=== PATIENT | female | born 1985 | race Caucasian/White ===

== ENCOUNTER → 2016-07-08 | Outpatient (CLI) | payer OTHER ==
--- NOTE | 2016-07-08 10:42 | US ---
EXAMINATION TYPE: US extremity nonvascular ltd LT DATE OF EXAM: 07/08/2016 10:02 AM COMPARISON: NONE CLINICAL HISTORY: R22.42 L Leg swelling/mass/lump. On the upper medial left thigh, there is a large s oft tissue palpable mass that has been there over 10 yrs, slowly getting larger, not tender, never be en imaged before; pt has been scheduled with surgeon TECHNOLOGIST IMPRESSION: 3.6 x 2.5 x 3.6cm soft tissue mass with internal vascular IMPRESSION: SOFT TISSUE TUMOR IN THE RIGHT THIGH ON THE LEFT. BIOPSY IS SUGGESTED.
== END | disposition home or self-care (01) ==
LOC: RADUSWWP 09:46
PROVIDERS: ATTEND Nurse Practitioner Family
DX: R22.42 Localized swelling, mass and lump, left lower limb (principal)

== ENCOUNTER 2016-08-21 09:10 | Day surgery (SDC) | payer OTHER ==
--- NOTE | 2016-08-09 13:51 | HP ---
DATE OF ADMISSION: 08/21/2016 CHIEF COMPLAINT: Left thigh mass. HISTORY OF PRESENT ILLNESS: Patient 31-year-old female who has had slowly enlarging mass in the left thigh since she was in high school. This has been increasing in size. Denies any significant pain except when it rubs up against her other thigh. She does state is more firm now than it had been in the past. No drainage. No fevers or chills. Never any redness. The patient had an ultrasound showing a 3.6 cm soft tissue mass with vascularity in June. PAST MEDICAL HISTORY: Anxiety. PAST SURGICAL HISTORY: Cholecystectomy. MEDICATIONS: 1. Mirena. 2. Xanax. 3. Valtrex. ALLERGIES: None. PHYSICAL EXAM: HEENT is normocephalic. Sclerae anicteric. CHEST: No deformities. ABDOMEN: Soft, nontender, nondistended. Extremities reveal a large mass in the upper anterior medial thigh beneath the inguinal ligament, this measures approximately 6 x 6 cm in size, it is mildly tender, this seems to be fully mobile and not adherent to the underlying structures. This is firm and somewhat rubbery, no adenopathy noted. 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 PLAN: Will proceed with operative excision on 08/21. The risks of bleeding, infection, postoperative pain, scarring, numbness and findings of malignancy that could require additional surgical procedures. The patient understands and wishes to proceed.
[2016-08-19 08:31] VITALS: BMI 39.9
[~2016-08-21 09:10] MED LIST: DEXAMETHASONE SOD PHOSPHATE 10 MG/ML 1 ML VIAL IV ONE; HEPARIN SODIUM,PORCINE 5,000 UNIT/ML 1 ML VIAL SQ ONE; HYDROmorphone 1 MG/ML 1 ML SYRINGE IVP PRN; LACTATED RINGERS 1,000 ML IV SCH; MIDAZOLAM 2 MG/2 ML VIAL IV PRN; ONDANSETRON 4 MG/2 ML VIAL IVP ONE; Pre Op ABX Message 1 EACH MISC MISCELLANE ONE; SCOPOLAMINE 1.5MG/72HR PATCH TRANSDERM ONE
[2016-08-21] MEDS ORDERED: LIDOCAINE 1% 20 ML VIAL (10MG/ML) FOR IV START INTRADERMA ONE (10:39)
[2016-08-21 10:47] VITALS: RESP 16
[2016-08-21] MEDS ORDERED: LIDOCAINE 1% INJ 10MG/ML (20 ML MDV) ONE (11:39)
[2016-08-21] MEDS ORDERED: SUCCINYLCHOLINE CHLORIDE 100 MG/5 ML SYR IV ONE (11:39)
[2016-08-21] MEDS ORDERED: fentaNYL (PF) 50 MCG/ML 2 ML AMP ONE (11:39)
[2016-08-21] MEDS ORDERED: ceFAZolin 1,000 MG VIAL ONE (11:39)
[2016-08-21] MEDS ORDERED: MIDAZOLAM 2 MG/2 ML VIAL ONE (11:39)
[2016-08-21] MEDS ORDERED: PROPOFOL 10 MG/ML 20 ML VIAL IV ONE (11:39)
[2016-08-21] MEDS ORDERED: HYDROmorphone (PF) 1 MG/ML ONE (11:39)
[2016-08-21] MEDS ORDERED: ceFAZolin 2 GM in SODIUM CHLORIDE 0.9% 100 ML IVPB STA (11:41)
[2016-08-21] MEDS ORDERED: BUPIVACAIN-EPI 0.25%-1:200,000 30 ML VIAL SQ ONE (11:57)
[2016-08-21] MEDS ORDERED: NALOXONE 0.4 MG/ML 1 ML VIAL IV PRN (12:26)
[2016-08-21] MEDS ORDERED: HYDROcodone/APAP 5-325MG 1 EACH TAB PO PRN (12:26)
--- NOTE | 2016-08-21 12:29 | P.PCN ---
Date of Procedure: 08/21/16 Procedure(s) Performed: PREOPERATIVE DIAGNOSIS: Left thigh mass POSTOPERATIVE DIAGNOSIS: Same PROCEDURE: Excision SURGEON: Hector EBL: Minimal ANESTHESIA: General COMPLICATIONS: None OPERATIVE PROCEDURE: Patient is place never table in the supine position. The left thigh was frog legged. The proximal left thigh was prepped and draped in usual sterile fashion. An elliptical incision was made overlying the palpable mass excising a portion of skin to assist with our cosmetic closure. Dissection through the superficial subcutaneous fat took place using electrocautery. The patient's mass was quite large measuring over 8 cm in diameter. There was a central portion of this lipomatous mass that was quite firm. This is able to be removed easily in one portion with primarily blunt dissection. The saphenous tissues were inspected. No bleeding was seen. The saphenous tissues were closed using 3-0 Vicryl sutures and the skin using a running 4-0 Monocryl stitch. Dermabond was used on the skin incision itself. DISPOSITION: Stable to recovery room
[2016-08-21 12:32] VITALS: TEMP 98.6
[2016-08-21 14:26] VITALS: BP 111/71; PULSE 80
== END 2016-08-21 14:43 | disposition home or self-care (01) ==
LOC: OR 09:10
PROVIDERS: ATTEND Surgery
DX: D17.24 Benign lipomatous neoplasm of skin and subcutaneous tissue of left leg (principal); M79.89 Other specified soft tissue disorders; F41.9 Anxiety disorder, unspecified; E66.9 Obesity, unspecified; Z79.899 Other long term (current) drug therapy
CPT/HCPCS: 81025; 88304; 27337; J2250; J1644; J1100; J0690 ×2; J2405; J2001; J3010; J1170; J0330; J2704

== ENCOUNTER 2020-11-03 07:07 | Emergency (ER) | payer OTHER ==
[2020-11-03 07:15] VITALS: RESP 18; TEMP 97.7
--- NOTE | 2020-11-03 07:29 | ED ---
ENT HPI - General Chief complaint: ENT Stated complaint: ENT Time Seen by Provider: 11/03/20 07:16 Source: patient, RN notes reviewed Mode of arrival: ambulatory Limitations: no limitations - History of Present Illness Initial comments: This a 35-year-old female presents emergency Department chief complaint of sore throat, difficulty swallowing. Patient states this started yesterday though she thought it was just from a new air-conditioner that they put in her room. Patient states that did seem to get slightly better throughout the day but states that she woke up this morning and seemed worse. She states it's not excruciating pain states is painful to swallow states it just feels very swollen. Patient denies any nasal congestion, fever, chills, abdominal pain, cough or chest congestion. Denies any sick contacts no history of mono. No prior adenoidectomy and tonsillectomy. - Related Data Home Medications Medication Instructions Recorded Confirmed Citalopram Hydrobromide 10 mg PO DAILY 11/03/20 11/03/20 [Citalopram HBr] Previous Rx's Medication Instructions Recorded Amoxicillin/Potassium Clav 1 tab PO Q12HR #20 tab 11/03/20 [Augmentin 875-125 Tablet] predniSONE 50 mg PO DAILY #3 tab 11/03/20 Allergies Allergy/AdvReac Type Severity Reaction Status Date / Time No Known Allergies Allergy Verified 11/03/20 07:55 Review of Systems ROS Statement: Those systems with pertinent positive or pertinent negative responses have been documented in the HPI. ROS Other: All systems not noted in ROS Statement are negative. Past Medical History Additional Past Medical History / Comment(s): left thigh mass History of Any Multi-Drug Resistant Organisms: None Reported Past Surgical History: Cholecystectomy Past Anesthesia/Blood Transfusion Reactions: No Reported Reaction Past Psychological History: Anxiety Smoking Status: Never smoker Past Alcohol Use History: Occasional Past Drug Use History: None Reported - Past Family History Mother Family Medical History: No Reported History General Exam Limitations: no limitations General appearance: alert, in no apparent distress Head exam: Present: atraumatic, normocephalic, normal inspection Eye exam: Present: normal appearance, PERRL, EOMI. Absent: scleral icterus, conjunctival injection, periorbital swelling ENT exam: Present: mucous membranes moist, TM's normal bilaterally. Absent: normal exam, normal oropharynx (Moderate swelling, erythema, swallowing secretions well no exudates) Neck exam: Present: normal inspection, full ROM, lymphadenopathy. Absent: tende rness, meningismus Respiratory exam: Present: normal lung sounds bilaterally. Absent: respiratory distress, wheezes, rales, rhonchi, stridor Cardiovascular Exam: Present: regular rate, normal rhythm, normal heart sounds. Absent: systolic murmur, diastolic murmur, rubs, gallop, clicks Neurological exam: Present: alert Skin exam: Present: warm, dry, intact, normal color. Absent: rash Course Vital Signs 11/03/20 07:12 Temperature 97.7 F Pulse Rate 90 Respiratory 18 Rate Blood Pressure 139/83 O2 Sat by Pulse 97 Oximetry Medical Decision Making - Medical Decision Making [place], strep is negative. Patient does have evidence of tonsillitis Patient was given steroids, antibiotics. Patient discharged on antibiotics in 2 days with steroids. Patient will return for any worsening symptoms. - Lab Data Lab Results 11/03/20 11/03/20 Range/Units 07:27 07:27 Heterophile Antibody Negative (Negative) Group A Strep Rapid Negative (Negative) Disposition Clinical Impression: Acute tonsillitis Disposition: HOME SELF-CARE Condition: Stable Instructions (If sedation given, give patient instructions): Tonsillitis (ED) Additional Instructions: Please return to the Emergency Department if symptoms worsen or any other concerns. Prescriptions: Amoxicillin/Potassium Clav [Augmentin 875-125 Tablet] 1 tab PO Q12HR #20 tab predniSONE 50 mg PO DAILY #3 tab Is patient prescribed a controlled substance at d/c from ED?: No Referrals: Vasu Eckert MD [Primary Care Provider] - 1-2 days Time of Disposition: 08:36
[2020-11-03] MEDS: DEXAMETHASONE SOD PHOSPHATE 10 MG/ML 1 ML VIAL IV STA (07:37)
--- NOTE | 2020-11-03 08:25 | XR ---
EXAMINATION TYPE: XR soft tissue neck DATE OF EXAM: 11/03/2020 COMPARISON: None HISTORY: 35-year-old female throughout swelling, feels like something is stuck. TECHNIQUE: AP and lateral views FINDINGS: Mild adenoid soft tissue hypertrophy. The vallecular space is effaced limited visualization of the ep iglottis. Epiglottis probably within normal limits. Scattered calcifications of the thyroid cartilage . No retained radiopaque foreign body is clearly identified. No abnormal narrowing of the subglottic airway. No prevertebral soft tissue swelling. A left-sided nose ring is present. Dental amalgam. IMPRESSION: No retained radiopaque foreign body clearly identified radiographically along the soft tissues of the neck. Some thyroid cartilage calcifications are noted. The vallecular space is effaced limiting adeq uate visualization of the epiglottis. This may be secondary to lingual tonsillar hypertrophy
[2020-11-03] MEDS: cefTRIAXone IN SWFI 1,000 MG/10 ML SYRINGE IVP STA (09:13)
[2020-11-03 09:21] VITALS: BP 129/82; PULSE 84
== END 2020-11-03 09:20 | disposition home or self-care (01) ==
LOC: EC 07:07
DX: J03.90 Acute tonsillitis, unspecified (principal); F41.9 Anxiety disorder, unspecified; Z79.52 Long term (current) use of systemic steroids; Z79.899 Other long term (current) drug therapy
CPT/HCPCS: 36415; 86308; 87081; 87430; 70360; 99283; 96374; 96375; J1100; J0696

== ENCOUNTER → 2021-03-27 | Outpatient (CLI) | payer OTHER | END | disposition home or self-care (01) | LOC: LABWHC1 07:16 | PROVIDERS: ATTEND Obstetrics & Gynecology | DX: O20.0 Threatened abortion (principal); Z3A.00 Weeks of gestation of pregnancy not specified | CPT/HCPCS: 86850; 86900; 86901 ==

== ENCOUNTER 2021-10-23 06:00 | Inpatient (IN) | payer OTHER ==
--- NOTE | 2021-10-22 12:29 | P.HPOB ---
History of Present Illness H&P Date: 10/22/21 Chief Complaint: Induction due to gestational diabetes This patient is a pleasant 36 yr old female EDC 10/25/2021 estimated gestational age 39 5/7 weeks who presents for delivery secondary to insulin dependent gestational diabetes. Patient's care initially was with Dr. Cardona however transferred to [place] after he left the practice. care is complicated by insulin dependent GDM which has been managed by [facility]. She also is advanced for maternal age. She declined genetic testing, but did have a normal Level III ultrasound. Most recent ultrasound shows EFW 8#6oz which is the size of her last delivery. She did have mild blood pressure in the office last week and was evaluated by Dr. Clifford. Review of Systems Genitourinary: Reports Menstruation: Reports amenorrhea Past Medical History Additional Past Medical History / Comment(s): left thigh mass; 2 , second with GDM; obesity History of Any Multi-Drug Resistant Organisms: None Reported Past Surgical History: Cholecystectomy Past Anesthesia/Blood Transfusion Reactions: No Reported Reaction Past Psychological History: Anxiety Smoking Status: Never smoker Past Alcohol Use History: Occasional Past Drug Use History: None Reported - Past Family History Mother Family Medical History: No Reported History Medications and Allergies Allergies Allergy/AdvReac Type Severity Reaction Status Date / Time No Known Allergies Allergy Verified 11/03/20 07:55 Exam - OBG Physical Exam Abdomen: bowel sounds normal, no diffuse tenderness, no bruit present, no guarding noted, no hepatomegaly, no splenomegaly, no mass Vulva: both: normal Vagina: normal moisture, no discharge Uterus: enlarged Results labs: O negative (received Rhogam), Rubella Non-Immune, RPR-HepB negative, Glucola 189, Ultrasound 10/17 EFW 8#6oz (>90%). GBS negative Assessment and Plan Assessment: This is a pleasant 36 yr female estimated gestational age 39 5/7 weeks with insulin dependent gestational DM, elderly for induction of labor. She also has has some mild BP elevations in the office last week. Plan is induction of labor, close observation of glucoses, and will check pre-eclampsia labs. Anticipate vaginal delivery. (1) 39 weeks gestation of Status: Acute Code(s): Z3A.39 - 39 WEEKS GESTATION OF SNOMED Code(s): 05685451 (2) Gestational diabetes Status: Acute Code(s): O24.419 - GESTATIONAL DIABETES MELLITUS IN , UNSP CONTROL SNOMED Code(s): 88443581 (3) Elderly multigravida Status: Acute Code(s): O09.529 - SUPERVISION OF ELDERLY MULTIGRAVIDA, UNSPECIFIED TRIMESTER SNOMED Code(s): 995770834 (4) Rh negative state in antepartum period Status: Acute Code(s): O26.899 - OTH RELATED CONDITIONS, UNSPECIFIED TRIMESTER; Z67.91 - UNSPECIFIED BLOOD TYPE, RH NEGATIVE SNOMED Code(s): 083134299 (5) Rubella non-immune status, antepartum Status: Acute Code(s): O09.899 - SUPERVISION OF OTHER HIGH RISK PREGNANCIES, UNSP TRIMESTER; Z28.39 - OTHER UNDERIMMUNIZATION STATUS SNOMED Code(s): 087052218 (6) Obesity Status: Acute Code(s): E66.9 - OBESITY, UNSPECIFIED SNOMED Code(s): 178274145
[2021-10-23] MEDS ORDERED: CARBOPROST TROMETHAMINE 250 MCG/ML 1 ML AMP IM PRN (06:29)
[2021-10-23] MEDS ORDERED: OXYTOCIN 30 UNITS/500 ML NS 30 UNIT in SALINE 1 500ML.BAG IV SCH ×2 (06:29→14:33)
[2021-10-23] MEDS ORDERED: TERBUTALINE 1 MG/ML VIAL SQ PRN (06:29)
[2021-10-23] MEDS ORDERED: LIDOCAINE 0.5% (PF) 5 MG/ML (50 ML SDV) SQ PRN (06:29)
[2021-10-23] MEDS ORDERED: METHYLERGONOVINE 0.2 MG/ML 1 ML AMP IM PRN (06:29)
[2021-10-23] MEDS ORDERED: OXYTOCIN 10 UNIT/ML 1 ML VIAL IM PRN (06:29)
[2021-10-23 06:40] LABS: Glucose,Whole Blood 121 mg/dL (75-99)
[2021-10-23 06:45] LABS: Anisocytosis Slight; Basophils % (A) 0 %; Eosinophils # (A) 0.1 k/uL (0-0.7); Eosinophils % (A) 1 %; HCT 36.1 % (34.0-46.0); HGB 11.6 gm/dL (11.4-16.0); Hypochromasia Slight; Lymphocytes % (A) 21 %; MCHC 32.2 g/dL (31.0-37.0); MCV 80.7 fL (80.0-100.0); Mean Platelet Volume 8.5; Monocytes # (A) 0.4 k/uL (0-1.0); Monocytes % (A) 4 %; Neutrophils # (A) 6.9 k/uL (1.3-7.7); Neutrophils % (A) 72 %; Platelet Count 310 k/uL (150-450); Poikilocytosis Slight; RBC 4.48 m/uL (3.80-5.40); RDW 16.1 % (11.5-15.5); WBC 9.6 k/uL (3.8-10.6)
[2021-10-23 06:54] LABS: ALT 15 U/L (4-34); AST 21 U/L (14-36); African American GFR (CKD) >90 (>60 ml/min/1.73 sqM); Blood Urea Nitrogen 11 mg/dL (7-17); LDH 500 U/L (313-618); Non-African American GFR(CKD) >90 (>60 ml/min/1.73 sqM); Uric Acid 5.2 mg/dL (3.7-7.4)
[2021-10-23] MEDS: LACTATED RINGERS 1,000 ML IV SCH ×3 (06:54→11:45)
[2021-10-23 07:59] LABS: Glucose,Whole Blood 92 mg/dL (75-99)
[2021-10-23 08:55] LABS: Glucose,Whole Blood 81 mg/dL (75-99)
[2021-10-23 09:59] LABS: Glucose,Whole Blood 85 mg/dL (75-99)
[2021-10-23] MEDS ORDERED: fentaNYL (PF) 50 MCG/ML 5 ML AMP ONE (10:10)
[2021-10-23] MEDS ORDERED: SODIUM CHLORIDE 0.9% 100 ML BAG ONE (10:10)
[2021-10-23] MEDS ORDERED: ROPIVACAINE 5MG/ML 20ML VIAL ONE (10:10)
[2021-10-23 10:53] LABS: Glucose,Whole Blood 92 mg/dL (75-99)
[2021-10-23 11:54] LABS: Glucose,Whole Blood 88 mg/dL (75-99)
[2021-10-23 12:53] LABS: Glucose,Whole Blood 80 mg/dL (75-99)
[2021-10-23] MEDS ORDERED: diphenhydrAMINE 50 MG/ML 1 ML VIAL IVP PRN (14:33)
[2021-10-23] MEDS ORDERED: Rhogam IMMUNE GLOBULIN 1,500 UNIT/1 ML IM ONE (14:33)
[2021-10-23] MEDS ORDERED: SIMETHICONE 80 MG CHEWABLE PO PRN (14:33)
[2021-10-23] MEDS ORDERED: MEASLES-MUMPS-RUBELLA VACC/PF 12,500 UNIT/0.5 ML VIAL SQ ONE (14:33)
[2021-10-23] MEDS ORDERED: LANOLIN CREAM 5 GM TUBE TOPICAL PRN (14:33)
[2021-10-23] MEDS ORDERED: diphenhydrAMINE 25 MG CAP PO PRN (14:33)
[2021-10-23] MEDS ORDERED: BENZOCAINE/MENTHOL SPRAY 1 GM/SPRAY AEROSOL TOPICAL PRN (14:33)
[2021-10-23] MEDS ORDERED: ZOLPIDEM 5 MG TAB PO PRN (14:33)
[2021-10-23] MEDS ORDERED: HYDROCORTISONE 2.5% RECTAL CREAM 30 GM TUBE RECTAL PRN (14:33)
[2021-10-23] MEDS ORDERED: bisacodyL 10 MG SUPP RECTAL PRN (14:33)
[2021-10-23] MEDS ORDERED: ACETAMINOPHEN TAB 325 MG TAB PO PRN (14:33)
[2021-10-23] MEDS: IBUPROFEN 600 MG TAB PO PRN (15:08)
[2021-10-23 15:20] LABS: Glucose,Whole Blood 63 mg/dL (75-99)
--- NOTE | 2021-10-23 18:49 | P.PROBDLV ---
Vaginal Delivery Note - . Vaginal Delivery Note: Normal vaginal delivery viable male infant Apgars 9 and 9 delivery time is 1354 hrs. Please see dictated H&P for intimate details of this patient's admission. Brief summary this is a pleasant 36-year-old 4 para 2 female 39-5/7 weeks gestation who is admitted to labor and delivery for induction of labor secondary to insulin-dependent gestational diabetes. Patient also did have some elevated blood pressures and admission and elevated blood pressure however this didn't come down and labs were normal. Patient is artificial rupture membranes at 2 cm dilated for clear fluid. Labor is induced with Pitocin. She progresses and does get an epidural for pain control. Patient gets to complete pushes approximately 1 or 2 times pushes the head to the perineum. Posterior perineum is supported we have controlled delivery of the 's head over the intact perineum. 's head is straight occiput anterior presentation. Mouth and nares are bulb suctioned. There is no evidence of a nuchal cord. With gentle downward traction we then have deliver the anterior and posterior shoulder and rest this infant's body. This is a vigorous viable male infant Apgars are 9 and 9 delivery time is 1354 hrs. Infant has spontaneous respiration and good cry and grossly appears normal. is late on the mother's abdomen. Due to history of jaundice with one of her children the umbilical cord is doubly clamped and cut immediately. Of note there is H do not the umbilical cord. After delivery of the the placenta spontaneously delivered intact. Inspection of the perineum shows a first-degree small laceration is repaired with a [id number] 3-0 Vicryl suture good reapproximation is noted. All counts are correct 3. There are no complications. and mother are stable delivery room.
[2021-10-23] MEDS: SENNOSIDES-DOCUSATE SODIUM 1 EACH TAB PO SCH (19:59)
[2021-10-24] MEDS: IBUPROFEN 600 MG TAB PO PRN ×2 (00:33→08:49)
[2021-10-24 00:52] VITALS: TEMP 98
--- NOTE | 2021-10-24 06:22 | P.PNOBGVD ---
Subjective - Subjective Patient reports: Reports appetite normal, Reports voiding normally, Reports pain well controlled, Reports ambulating normally [place]: doing well Objective - Latest Vital Signs Latest vital signs: Vital Signs Temp Pulse Resp BP Pulse Ox 10/24/21 00:00 98.0 F 96 16 141/88 97 10/23/21 20:00 98.3 F 113 H 17 141/80 97 10/23/21 16:15 97.5 F L 92 16 136/73 10/23/21 15:45 93 16 132/66 10/23/21 15:15 94 16 131/73 10/23/21 15:00 97 16 132/77 10/23/21 14:45 102 H 16 131/62 10/23/21 14:30 100 16 128/59 10/23/21 14:15 97.9 F 101 H 16 131/69 10/23/21 06:27 97.0 F L 95 16 157/95 Intake and Output 10/23/21 10/23/21 10/24/21 14:59 22:59 06:59 Intake Total 203.300 Output Total 300 Balance -96.700 Intake: Intake, IV Titration 203.300 Amount Oxytocin 30 Units/500 ml 203.300 Ns 30 unit In Saline 1 500ml.bag @ Per Protocol IV .Q0M [facility] Rx#:[id number] Output: Urine 300 Straight 300 Other: # Voids 1 1 1 - Exam Lungs: bilateral: normal Chest: Normal S1, Normal S2 Extremities: Present: normal Abdomen: Present: normal appearance, soft Uterus: Present: normal, firm - Labs Labs: Abnormal Lab Results - Last 24 Hours (Table) 10/23/21 10/23/21 10/23/21 Range/Units 06:20 06:34 15:15 RDW 16.1 H (11.5-15.5) % POC Glucose (mg/dL) 121 H 63 L (75-99) mg/dL Assessment and Plan Assessment: day #1. Patient is resting without complaints wishes to go home. Vital signs are stable and she is afebrile. Uterus is firm nontender she is having normal lochia. My impression this is a normal course. Plan is to continue routine care discharge home later today (1) 39 weeks gestation of Current Visit: No Status: Acute Code(s): Z3A.39 - 39 WEEKS GESTATION OF SNOMED Code(s): 14651717 (2) Gestational diabetes Current Visit: No Status: Acute Code(s): O24.419 - GESTATIONAL DIABETES MELLITUS IN , UNSP CONTROL SNOMED Code(s): 50083482 (3) Elderly multigravida Current Visit: No Status: Acute Code(s): O09.529 - SUPERVISION OF ELDERLY MULTIGRAVIDA, UNSPECIFIED TRIMESTER SNOMED Code(s): 692748928 (4) Rh negative state in antepartum period Current Visit: No Status: Acute Code(s): O26.899 - OTH RELATED CONDITIONS, UNSPECIFIED TRIMESTER; Z67.91 - UNSPECIFIED BLOOD TYPE, RH NEGATIVE SNOMED Code(s): 751978044 (5) Rubella non-immune status, antepartum Current Visit: No Status: Acute Code(s): O09.899 - SUPERVISION OF OTHER HIGH RISK PREGNANCIES, UNSP TRIMESTER; Z28.39 - OTHER UNDERIMMUNIZATION STATUS SNOMED Code(s): 739566815 (6) Obesity Current Visit: No Status: Acute Code(s): E66.9 - OBESITY, UNSPECIFIED SNOMED Code(s): 827116857
--- NOTE | 2021-10-24 06:27 | P.DS ---
Providers Date of admission: 10/23/21 06:07 Expected date of discharge: 10/24/21 Attending physician: Mac Aguilar Primary care physician: Vasu Eckert - Discharge Diagnosis(es) (1) 39 weeks gestation of Current Visit: No Status: Acute (2) Gestational diabetes Current Visit: No Status: Acute (3) Elderly multigravida Current Visit: No Status: Acute (4) Rh negative state in antepartum period Current Visit: No Status: Acute (5) Rubella non-immune status, antepartum Current Visit: No Status: Acute (6) Obesity Current Visit: No Status: Acute Hospital Course: Please see dictated H&P for intimate details of this patient's admission. Brief summary is a pleasant 36-year-old 4 para 2 female 39-5/7 weeks who is admitted to labor and delivery for induction of labor secondary to insulin-depen dent gestational diabetes at term. On admission's patient's blood pressure was elevated initially however this didn't come down to normal showed no further blood pressure elevations. Preeclampsia labs were negative. Patient had induction of labor quickly goes on have a vaginal delivery viable male infant. Please see dictated delivery note. day #1 patient is without complaints wishes to go home. Vital signs are stable she is afebrile. Uterus is firm nontender she's having normal lochia. Patient's felt be stable for discharge home follow up with me in 6 weeks. Procedures: Induction of labor normal vaginal delivery Patient Condition at Discharge: Good Plan - Discharge Summary New Discharge Prescriptions: New Ibuprofen [Motrin] 600 mg PO Q6HR PRN #30 tab PRN Reason: Mild Pain (Scale 1 To 3) Discharge Medication List Ibuprofen [Motrin] 600 mg PO Q6HR PRN #30 tab 10/24/21 [Rx] Follow up Appointment(s)/Referral(s): Mac Aguilar MD [STAFF PHYSICIAN] - 12/04/21 11:15 am Patient Instructions/Handouts: Vaginal Delivery (DC) Activity/Diet/Wound Care/Special Instructions: No intercourse or anything per vagina or 6 weeks. Please call if any fever, chills, excessive vaginal bleeding, and/or abdominal pain. Discharge Disposition: HOME SELF-CARE
[2021-10-24 08:23] LABS: Anisocytosis Slight; Basophils % (A) 0 %; Eosinophils # (A) 0.2 k/uL (0-0.7); Eosinophils % (A) 2 %; HGB 10.1 gm/dL (11.4-16.0); Hypochromasia Moderate; Lymphocytes # (A) 1.9 k/uL (1.0-4.8); Lymphocytes % (A) 19 %; MCH 26.5 pg (25.0-35.0); MCHC 32.6 g/dL (31.0-37.0); MCV 81.4 fL (80.0-100.0); Mean Platelet Volume 8.8; Monocytes # (A) 0.4 k/uL (0-1.0); Monocytes % (A) 4 %; Neutrophils # (A) 7.7 k/uL (1.3-7.7); Neutrophils % (A) 74 %; Platelet Count 271 k/uL (150-450); Poikilocytosis Slight; RBC 3.81 m/uL (3.80-5.40); RDW 16.2 % (11.5-15.5); WBC 10.4 k/uL (3.8-10.6)
[2021-10-24] MEDS: SENNOSIDES-DOCUSATE SODIUM 1 EACH TAB PO SCH (08:49)
[2021-10-24 10:09] VITALS: RESP 18
[2021-10-24 13:28] VITALS: BP 129/82; PULSE 91
== END 2021-10-24 14:30 | disposition home or self-care (01) | DRG 807 ==
LOC: 4FBP 06:07
PROVIDERS: ADMIT Obstetrics & Gynecology; ATTEND Obstetrics & Gynecology
PROC: 10E0XZZ Delivery of Products of Conception, External Approach (ICD-10-PCS; principal; 2021-10-23)
PROC: 3E0234Z Introduction of Serum, Toxoid and Vaccine into Muscle, Percutaneous Approach (ICD-10-PCS; 2021-10-23)
PROC: 10907ZC Drainage of Amniotic Fluid, Therapeutic from Products of Conception, Via Natural or Artificial Opening (ICD-10-PCS; 2021-10-23)
PROC: 3E033VJ Introduction of Other Hormone into Peripheral Vein, Percutaneous Approach (ICD-10-PCS; 2021-10-23)
PROC: 4A0HXCZ Measurement of Products of Conception, Cardiac Rate, External Approach (ICD-10-PCS; 2021-10-23)
DX: O24.424 Gestational diabetes mellitus in childbirth, insulin controlled (principal); Z37.0 Single live birth; F41.9 Anxiety disorder, unspecified; O70.0 First degree perineal laceration during delivery; O26.893 Other specified pregnancy related conditions, third trimester; Z67.91 Unspecified blood type, Rh negative; O99.214 Obesity complicating childbirth; E66.9 Obesity, unspecified; O99.344 Other mental disorders complicating childbirth; Z3A.39 39 weeks gestation of pregnancy
CPT/HCPCS: 82565; 83036; 83615; 84450; 84460; 84520; 84550; 85025; 85461; 86850; 86900; 86901; 90707

== ENCOUNTER 2023-10-10 10:38 | Day surgery (SDC) | payer OTHER ==
[2023-10-03 14:24] VITALS: BMI 43.9
[2023-10-10] MEDS: LACTATED RINGERS 1,000 ML IV SCH (11:35)
[2023-10-10] MEDS ORDERED: ONDANSETRON 4 MG/2 ML VIAL ONE (11:49)
[2023-10-10] MEDS: ONDANSETRON 4 MG/2 ML VIAL IVP ONE (11:52)
[2023-10-10 12:25] VITALS: PULSE 95; RESP 16; TEMP 96.9
[2023-10-10] MEDS ORDERED: PROPOFOL 10 MG/ML 20 ML VIAL IV ONE (12:30)
--- NOTE | 2023-10-10 12:50 | P.PCN ---
Date of Procedure: 10/10/23 Procedure(s) Performed: BRIEF HISTORY: Patient is a 38-year-old pleasant white female scheduled for an elective colonoscopy as a part of change in bowel habits or as 6 months duration. She had diarrhea for few weeks but eventually resolved but lately has been having irregular bowel movements. She does have family history of colon cancer diagnosed with grandmother in her 60s. PROCEDURE PERFORMED: Colonoscopy. PREOPERATIVE DIAGNOSIS: Change in bowel habits/family history of colon cancer. IV sedation per Anesthesia. PROCEDURE: After informed consent was obtained, the patient, was brought into the endoscopy unit. IV sedation was administered by Anesthesia under continuous monitoring. Digital rectal examination was normal. Initially the Olympus CF-160 flexible video colonoscope was then inserted in the rectum, gradually advanced into the colon without any difficulty. Despite multiple attempts I was unable to advance the scope into the base of the cecum. Careful examination was performed as the scope was gradually being withdrawn. Prep was excellent. Mucosa of the ascending colon, transverse colon, descending colon, sigmoid colon, and rectum appeared normal. Retroflexion was performed in the rectum and no lesions were seen. The patient tolerated the procedure well. IMPRESSION: Normal-appearing colon from rectum to right colon with no evidence of colorectal neoplasia. RECOMMENDATIONS: Findings of this examination were discussed with the patient as well as her family. She was advised to have repeat screening colonoscopy in 10 years..
[2023-10-10 13:24] VITALS: BP 165/80
== END 2023-10-10 13:23 | disposition home or self-care (01) ==
LOC: ORWHC2ENDO 10:38
PROVIDERS: ATTEND Internal Medicine Gastroenterology
DX: R19.4 Change in bowel habit (principal); F32.A Depression, unspecified; F12.90 Cannabis use, unspecified, uncomplicated; Z80.0 Family history of malignant neoplasm of digestive organs; Z79.899 Other long term (current) drug therapy; Z90.49 Acquired absence of other specified parts of digestive tract
CPT/HCPCS: 81025; 45378; J2405; J2704